=== PATIENT | male | born 1995 | race Hispanic/Latino ===

== ENCOUNTER 2020-03-30 16:59 | Emergency (ER) | payer SELFPAY ==
[2020-03-30] MEDS ORDERED: ACETAMINOPHEN 325 MG TAB ONE (18:01)
[2020-03-30 18:06] LABS: BASOPHILS % (AUTO) 0.3 % (0.0-5.0); EOSINOPHILS % (AUTO) 0.3 % (0.0-8.0); HEMATOCRIT 47.3 % (42-54); LYMPHOCYTES % (AUTO) 19.8 % (21.0-51.0); MEAN CORPUSCULAR HEMOGLOBIN 29.5 pg (27.0-33.0); MEAN CORPUSCULAR HGB CONC 34.2 g/dL (32.0-36.0); MEAN CORPUSCULAR VOLUME 86.2 fL (79-99); MONOCYTES % (AUTO) 15.8 % (3.0-13.0); NEUTROPHILS % (AUTO) 63.6 % (40.0-77.0); PLATELET COUNT (AUTO) 207 K/uL (130-400); RED BLOOD CELL COUNT(AUTO) 5.49 MIL/uL (4.50-6.20); RED CELL DISTRIBUTION WIDTH 12.3 % (11.0-15.5); WHITE BLOOD COUNT (AUTO) 5.9 K/uL (4.8-10.8)
[2020-03-30 18:07] LABS: APPEARANCE,URINE Clear (CLEAR); BILIRUBIN,URINE Negative (NEGATIVE); COLOR,URINE Yellow (YELLOW); GLUCOSE, URINE (UA) Negative (NEGATIVE); KETONES,URINE Negative (NEGATIVE); LEUKOCYTE ESTERASE ,URINE Trace (NEGATIVE); NITRATE,URINE Negative (NEGATIVE); OCCULT BLOOD,URINE Negative (NEGATIVE); PH,URINE 7.5 (5.0-8.0); PROTEIN,URINE Trace mg/dL (NEGATIVE)
[2020-03-30 18:20] LABS: CREATININE 1.1 mg/dL (0.5-1.5); POTASSIUM 5.6 mmol/L (3.5-5.1)
[2020-03-30 18:22] LABS: RBC,URINE None Seen /HPF (0-1)
[2020-03-30 18:23] LABS: BACTERIA,URINE Rare /HPF (None Seen); MUCUS,URINE Few LPF (None Seen); SQUAMOUS EPITHELIAL CELL,UR None Seen /HPF (0-2)
[2020-03-30 18:27] LABS: RAPID GROUP A STREP NEGATIVE (NEGATIVE)
== END 2020-03-30 20:05 | disposition home or self-care (01) ==
LOC: EDH 16:59
DX: R19.7 Diarrhea, unspecified (principal); Z72.0 Tobacco use; Z98.890 Other specified postprocedural states
CPT/HCPCS: 36415; 71045; 80048; 81001; 85025; 87804; 87880

== ENCOUNTER 2021-01-21 07:25 | Emergency (ER) | payer OTHER | END 2021-01-21 08:03 | disposition home or self-care (01) | LOC: EDH 07:25 | DX: L03.211 Cellulitis of face (principal); I10 Essential (primary) hypertension ==

== ENCOUNTER 2024-09-04 13:44 | Emergency (ER) | payer SELFPAY ==
[~2024-09-04] VITALS: Ht 177.8 cm; Wt 104.3 kg
[~2024-09-04 13:44] MED LIST: KETO10 PO; PENI500T2 PO
[2024-09-04] MEDS: 0.9%NACL 1000ML 1,000 ML IV STA (14:17)
[2024-09-04] MEDS: ketOROlac 15MG/ML VIAL (15MG/ML) IV STA (14:17)
[2024-09-04 14:25] LABS: RAPID GROUP A STREP negative (NEGATIVE)
[2024-09-04 14:31] LABS: SARS-CoV-2, RNA, NAAT NEGATIVE SARS CoV-2 (NEGATIVE)
[2024-09-04 14:34] LABS: BASOPHILS # (AUTO) 0.01 K/uL (0.00-0.20); BASOPHILS % (AUTO) 0.3 % (0.0-5.0); EOSINOPHILS # (AUTO) 0.04 K/uL (0.00-0.70); EOSINOPHILS % (AUTO) 1.2 % (0.0-8.0); HEMATOCRIT 44.5 % (42-54); IMMATURE GRANULOCYTE ABSOLUTE 0.02 K/uL (0-1); LYMPHOCYTES # (AUTO) 0.6 K/uL (1.0-4.8); MEAN CORPUSCULAR HEMOGLOBIN 29.5 pg (27.0-33.0); MEAN CORPUSCULAR HGB CONC 35.3 g/dL (32.0-36.0); MEAN CORPUSCULAR VOLUME 83.5 fL (79-99); MONOCYTES # (AUTO) 0.4 K/uL (0.1-1.0); NEUTROPHILS # (AUTO) 2.2 K/uL (1.8-7.7); NEUTROPHILS % (AUTO) 67.9 % (40.0-77.0); PLATELET COUNT (AUTO) 147 K/uL (130-400); RED BLOOD CELL COUNT(AUTO) 5.33 MIL/uL (4.50-6.20); RED CELL DISTRIBUTION WIDTH 12.1 % (11.0-15.5); WHITE BLOOD COUNT (AUTO) 3.3 K/uL (4.8-10.8)
[2024-09-04 14:36] LABS: INFLUENZA TYPE A Negative For Type A (NEGATIVE); INFLUENZA TYPE B Negative For Type B (NEGATIVE)
[2024-09-04 14:41] LABS: CREATININE 1.1 mg/dL (0.5-1.3); POTASSIUM 3.5 mmol/L (3.5-5.1)
[2024-09-04 15:28] LABS: APPEARANCE,URINE CLEAR (CLEAR); BILIRUBIN,URINE NEGATIVE (NEGATIVE); COLOR,URINE YELLOW (YELLOW); GLUCOSE, URINE (UA) NEGATIVE (NEGATIVE); KETONES,URINE NEGATIVE (NEGATIVE); LEUKOCYTE ESTERASE ,URINE NEGATIVE Leu/uL (NEGATIVE); NITRATE,URINE NEGATIVE (NEGATIVE); OCCULT BLOOD,URINE NEGATIVE (NEGATIVE); PROTEIN,URINE 30 mg/dL (NEGATIVE); UROBILINOGEN,URINE 0.2 mg/dL (0.2-1.0)
[2024-09-04 15:29] LABS: ADD UA MICROSCOPIC YES
[2024-09-04 15:31] LABS: BACTERIA,URINE RARE /HPF (None Seen); MUCUS,URINE RARE LPF (None Seen); SQUAMOUS EPITHELIAL CELL,UR RARE /HPF (0-2)
[2024-09-04] MEDS: acetaMINOPHEN 325 MG TAB PO STA (16:57)
[2024-09-04 17:26] VITALS: BP 131/70; PULSE 87; RESP 14; TEMP 100.1; O2SAT 98
[2024-09-04 17:27] VITALS: TEMP 100.1
== END 2024-09-04 17:29 | disposition home or self-care (01) ==
LOC: EDH 13:44
DX: B34.9 Viral infection, unspecified (principal); Z20.822 Contact with and (suspected) exposure to COVID-19; Z79.899 Other long term (current) drug therapy
CPT/HCPCS: 99285; 96374; 87635; 96361; 80048; 85025; 87880; 87804 ×2; 81001; 36415; J7030; J1885

== ENCOUNTER 2025-01-13 08:55 | Emergency (ER) | payer SELFPAY ==
[~2025-01-13] VITALS: Ht 177.8 cm; Wt 117.9 kg
--- NOTE | 2025-01-13 09:03 | ERN ---
General Chief Complaint: Abdominal Pain Stated Complaint: ABDOMINAL PAIN Time Seen by MD: 09:01 History of Present Illness Initial Comments 29-year-old male, otherwise healthy, presents for on and off right upper quadrant and right flank pain for the last 2-3 months. Most severe after eating. He feels bloated. He went to a doctor in [place] and was told he had gastritis and he was given medications that he says it is not working. No fevers. No diarrhea. No medical or surgical history. Allergies: Coded Allergies: No Allergy Information Available (Verified Allergy, Unknown, 05/18/14) No Known Drug Allergies (Unverified Allergy, Unknown, 03/31/20) Home Meds Active Scripts Ketorolac Tromethamine (Toradol) 10 Mg Tab, 10 MG PO TIDP PRN for SEVERE PAIN (7-10), #15 TAB 0 Refills Prov:DIONE LEGER MD 02/18/22 Penicillin V Potassium (Penicillin V Potassium) 500 Mg Tablet, 1 TAB PO TID for 7 Days, #21 TAB 0 Refills Prov:DIONE LEGER MD 02/18/22 Past Medical History Past Medical History: No Pertinent History Past Surgical History: None Social History Social History: Other ROS Dictation CONSTITUTIONAL: No chills, no fever, no weakness, no diaphoresis, no malaise. HEAD/FACE: No signs of trauma. EENT: No eye pain, no blurred vision, no tearing, no double vision, no ear pain, no ear discharge, no nose pain, no nasal congestion, no throat pain, no throat swelling, no mouth pain. RESPIRATORY: No cough, no orthopnea, no SOB, no stridor, no wheezing. CARDIOVASCULAR: No chest pain, no edema, no palpitations, no syncope. GASTROINTESTINAL/ABDOMINAL: Right upper quadrant pain, bloating, nausea GENITOURINARY: No abnormal discharge, no dysuria, no frequent urination, no hematuria. No complaints of pain in the genitals. MUSCULOSKELETAL: No back pain, no gout, no joint pain, no joint swelling, no muscle pain, no muscle stiffness, no neck pain. INTEGUMENTARY: No change in color, no change in hair/nails, no dryness, no lesion, no lumps, no rash. NEUROLOGICAL/PSYCH: No anxiety, not depressed, no emotional problem, no headache, no numbness, no pre-existing deficit, no history of seizures, no t remors, no weakness. HEMATOLOGIC/LYMPHATIC: Not anemic, no history of blood clots, no apparent bleeding, no bruising, glands not swollen. All Systems Negative, Except as Noted. Physical Exam Physical Exam Dictation VITAL SIGNS: Reviewed. GENERAL APPEARANCE: Alert, oriented x3, no acute distress, obese. HEAD AND FACE: Non-traumatic. EYES: PERRL, pink conjunctivas, eyelid no trauma, anterior chamber clear. EARS: Pinnas intact and no signs of trauma or erythema. Ear canals clear and no discharge. TMs no erythema. NOSE: No discharge, no bleeding. OROPHARYNX: Mouth normal, teeth no caries, tongue pink. Pharynx clear, no erythema. Tonsils no exudates, no abscesses noted. Mucous membrane moist. NECK: Supple, non-tender, no thyromegaly, no masses, no JVD, no bruits. BREAST: Deferred. CHEST: No tenderness, no crepitus, no paradoxical movement, no retractions. LUNGS: Clear, well-ventilated, symmetric, no rales, no wheezing, no rhonchi, no stridor, good breath sounds bilaterally. HEART: Regular rate, regular rhythm, no murmur, no gallops. VASCULAR: No peripheral edema. ABDOMEN: Soft, positive bowel sounds, nondistended, no guarding, nontender, no rebound, no masses no hepatomegaly, no splenomegaly, no Kruse's sign, no hernias. RECTAL: Deferred. GENITAL: Deferred. NEUROLOGICAL: Normal speech, gross motor function intact, gross sensory function intact. MUSCULOSKELETAL: Neck nontender, full range of motion, back nontender, full range of motion. EXTREMITIES: Nontender, full range of motion. SKIN: Color pink, dry, no turgor, no rash, no lacerations, no abrasions, no contusions. LYMPHATICS: Deferred. Results Laboratory and Microbiology Lab and Micro Result Laboratory Tests Test 01/13/25 09:08 01/13/25 09:50 Urine Color LIGHT-YELLOW (YELLOW) Urine Appearance CLEAR (CLEAR) Urine pH 5.5 (5.0-8.0) Urine Specific [place] 1.024 (1.001-1.031) Urine Protein NEGATIVE mg/dL (NEGATIVE) Urine Glucose (UA) NEGATIVE mg/dL (NEGATIVE) Urine Ketones NEGATIVE mg/dL (NEGATIVE) Urine Occult Blood NEGATIVE (NEGATIVE) Urine Nitrate NEGATIVE (NEGATIVE) Urine Bilirubin NEGATIVE mg/dL (NEGATIVE) Urine Urobilinogen 0.2 mg/dL (0.2-1.0) Urine Leukocyte Esterase NEGATIVE Awa/uL White Blood Count 11.5 K/uL (4.8-10.8) H Red Blood Count 5.67 MIL/uL (4.50-6.20) Hemoglobin 16.6 g/dL (14.0-18.0) Hematocrit 48.6 % (42-54) Mean Corpuscular Volume 85.7 fL (79-99) Mean Corpuscular Hemoglobin 29.3 pg (27.0-33.0) Mean Corpuscular Hemoglobin Concent 34.2 g/dL (32.0-36.0) Red Cell Distribution Width 12.9 % (11.0-15.5) Platelet Count 296 K/uL (130-400) Mean Platelet Volume 10.9 fL (7.5-10.5) H Immature Granulocyte % (Auto) 0.7 % (0-1) Neutrophils (%) (Auto) 59.2 % (40.0-77.0) Lymphocytes (%) (Auto) 29.1 % (21.0-51.0) Monocytes (%) (Auto) 8.8 % (3.0-13.0) Eosinophils (%) (Auto) 1.7 % (0.0-8.0) Basophils (%) (Auto) 0.5 % (0.0-5.0) Neutrophils # (Auto) 6.8 K/uL (1.8-7.7) Lymphocytes # (Auto) 3.3 K/uL (1.0-4.8) Monocytes # (Auto) 1.0 K/uL (0.1-1.0) Eosinophils # (Auto) 0.20 K/uL (0.00-0.70) Basophils # (Auto) 0.06 K/uL (0.00-0.20) Absolute Immature Granulocyte (auto 0.08 K/uL (0-1) Nucleated Red Blood Cells 0.0 % (0.0-0.19) Sodium Level 139 mmol/L (136-145) Potassium Level 3.9 mmol/L (3.5-5.1) Chloride Level 102 mmol/L (101-111) Carbon Dioxide Level 30 mmol/L (21-32) Blood Urea Nitrogen 12 mg/dL (7-18) Creatinine 0.9 mg/dL (0.5-1.3) Glomerular Filtration Rate Calc 118 mL/min (>90) Random Glucose 123 mg/dL (70-105) H Total Calcium 9.4 mg/dL (8.5-10.1) Total Bilirubin 0.4 mg/dL (0.2-1.0) Direct Bilirubin 0.1 mg/dL (0.0-0.3) Aspartate Amino Transf (AST/SGOT) 23 U/L (10-37) Alanine Aminotransferase (ALT/SGPT) 44 U/L (12-78) Alkaline Phosphatase 115 U/L (50-136) Total Protein 7.9 g/dL (6.0-8.3) Albumin 4.5 g/dL (3.5-5.0) Lipase 39 U/L (16-77) MDM CC: Upper abdominal pain Historian: Patient Comorbidities: None Limitations by social determinants of health: Uninsured Differential diagnosis: Gastritis, biliary disease, liver disease, surgical pathology, other. Vital signs: Stable remained stable in the ER Labs (independently ordered and interpreted by me ): No leukocytosis, no anemia. Chemistry panel normal. Liver enzymes normal. Lipase normal. Urinalysis normal. Right upper quadrant ultrasound (independently interpreted by me): No obvious stones, no wall thickening, no pericholecystic fluid, no signs of cholecystitis or biliary disease. He does have a fatty liver. Very low suspicion for any life threats or surgical pathology. No signs of peritoneal abdomen, sepsis, or other surgical pathology. Symptoms most consistent with a gastritis. Plan: Prescription for omeprazole, recommend PCP follow up. ED Course Orders Procedure Category Date Status Time Cbc With Differential LAB 01/13/25 Complete : Urinalysis Profile LAB 01/13/25 Complete : Us Abdominal Ruq\Ltd US 01/13/25 Resulted : Lipase LAB 01/13/25 Complete : Basic Metabolic Panel LAB 01/13/25 Complete : Hepatic Function Panel LAB 01/13/25 Complete 09: Vital Signs Date Time Temp Pulse Resp B/P (MAP) Pulse Ox O2 Delivery O2 Flow Rate FiO2 01/13/25 09:00 99.0 100 20 145/98 99 Room Air DX & DISP Disposition: Discharge Departure Impression: Primary Impression: Gastritis Condition: Stable Scripts Omeprazole (Omeprazole) 20 Mg Capsule. 1 CAP PO DAILY for 30 Days, #30 CAP 0 Refills Prov: ARIEL KING DO 01/13/25 Additional Instructions: Your symptoms are consistent with a gastritis, or inflammation of the stomach lining. This can be caused by infections, medications, alcohol, or stress. I have prescribed omeprazole. Take once daily before eating in the morning. Take this for at least 30 days. You can take [id number] Tums or Maalox or Mylanta as needed for discomfort. Avoid NSAIDs such as ibuprofen, naproxen, and aspirin. Eat small, frequent meals. Avoid overheating. Avoid spicy foods, acidic foods, fried foods, and fatty foods. Limit caffeine, alcohol, and carbonated beverages. Stay hydrated. Avoid smoking, reduce stress. Do not lie down immediately after eating, wait at least 2-3 hours. Your lab work ( CBC, BMP, liver enzymes, lipase, urinalysis ) is unremarkable. The ultrasound of your right upper quadrant does not show any gallstones. You do have a fatty liver on the ultrasound. You can talk to your primary doctor regarding this. This is unlikely related to your symptoms. Please follow up with your primary doctor or stereotype molder. You may need further studies or testing. Referrals: SELF,REFERRAL (PCP) ARIEL KING DO Jan 13, 2025 09:03
[2025-01-13 09:20] LABS: APPEARANCE,URINE CLEAR (CLEAR); BILIRUBIN,URINE NEGATIVE (NEGATIVE); COLOR,URINE LIGHT-YELLOW (YELLOW); GLUCOSE, URINE (UA) NEGATIVE (NEGATIVE); KETONES,URINE NEGATIVE (NEGATIVE); LEUKOCYTE ESTERASE ,URINE NEGATIVE Leu/uL (NEGATIVE); NITRATE,URINE NEGATIVE (NEGATIVE); OCCULT BLOOD,URINE NEGATIVE (NEGATIVE); PH,URINE 5.5 (5.0-8.0); PROTEIN,URINE NEGATIVE (NEGATIVE); UROBILINOGEN,URINE 0.2 mg/dL (0.2-1.0)
[2025-01-13 09:23] LABS: ADD UA MICROSCOPIC NO
--- NOTE | 2025-01-13 09:58 | HMCIMG ---
Exam Type: US ABDOMINAL RUQ\E\LTD Clinical Information: Adominal Pain Comparison: None Findings: The liver shows fatty infiltration and is enlarged, measuring 17.1 cm and is otherwise unremarkable. Doppler evaluation shows patent portal and hepatic veins. The gallbladder shows no significant abnormalities. Specifically, no calculi are seen. No bile duct dilatation is noted. The gallbladder wall measures 3 mm. The common bile duct measures 5 mm. The right kidney measures 12 x 7 cm- it shows no hydronephrosis or calculi, masses or other abnormalities. The pancreas is suboptimally visualized. The aorta and inferior vena cava show no significant abnormalities. IMPRESSION: FATTY LIVER INFILTRATION AND HEPATOMEGALY. OTHERWISE NORMAL RIGHT UPPER QUADRANT ABDOMINAL ULTRASOUND.
[2025-01-13 10:02] LABS: BASOPHILS # (AUTO) 0.06 K/uL (0.00-0.20); BASOPHILS % (AUTO) 0.5 % (0.0-5.0); EOSINOPHILS % (AUTO) 1.7 % (0.0-8.0); HEMATOCRIT 48.6 % (42-54); IMMATURE GRANULOCYTE ABSOLUTE 0.08 K/uL (0-1); LYMPHOCYTES # (AUTO) 3.3 K/uL (1.0-4.8); LYMPHOCYTES % (AUTO) 29.1 % (21.0-51.0); MEAN CORPUSCULAR HEMOGLOBIN 29.3 pg (27.0-33.0); MEAN CORPUSCULAR HGB CONC 34.2 g/dL (32.0-36.0); MEAN CORPUSCULAR VOLUME 85.7 fL (79-99); MONOCYTES % (AUTO) 8.8 % (3.0-13.0); NEUTROPHILS # (AUTO) 6.8 K/uL (1.8-7.7); NEUTROPHILS % (AUTO) 59.2 % (40.0-77.0); PLATELET COUNT (AUTO) 296 K/uL (130-400); RED BLOOD CELL COUNT(AUTO) 5.67 MIL/uL (4.50-6.20); RED CELL DISTRIBUTION WIDTH 12.9 % (11.0-15.5); WHITE BLOOD COUNT (AUTO) 11.5 K/uL (4.8-10.8)
[2025-01-13 10:11] LABS: CREATININE 0.9 mg/dL (0.5-1.3); POTASSIUM 3.9 mmol/L (3.5-5.1)
[2025-01-13 10:15] LABS: ALBUMIN 4.5 g/dL (3.5-5.0); BILIRUBIN,DIRECT 0.1 mg/dL (0.0-0.3); BILIRUBIN,TOTAL 0.4 mg/dL (0.2-1.0); TOTAL PROTEIN, SERUM 7.9 g/dL (6.0-8.3)
[2025-01-13] MEDS ORDERED: OMEP20CA12 PO (10:24)
[2025-01-13 11:31] VITALS: BP 145/98; PULSE 100; RESP 20; TEMP 98.9; O2SAT 99
== END 2025-01-13 12:22 | disposition home or self-care (01) ==
LOC: EDH 08:55
DX: K29.70 Gastritis, unspecified, without bleeding (principal); Z79.899 Other long term (current) drug therapy
CPT/HCPCS: 36415; 76705; 80048; 80076; 81003; 83690; 85025; 99284

== ENCOUNTER 2025-09-19 18:34 | Emergency (ER) | payer SELFPAY ==
[~2025-09-19] VITALS: Ht 180.3 cm; Wt 122.5 kg
[~2025-09-19 18:34] MED LIST changes: +OMEP20CA12 PO
[2025-09-19 19:07] LABS: IMMATURE GRANULOCYTE ABSOLUTE 0.05 K/uL (0-1); NUCLEATED RED BLOOD CELLS 0.0 % (0.0-0.19); PLATELET COUNT (AUTO) 225 K/uL (130-400); RED BLOOD CELL COUNT(AUTO) 4.71 MIL/uL (4.50-6.20); RED CELL DISTRIBUTION WIDTH 12.6 % (11.0-15.5); WHITE BLOOD COUNT (AUTO) 10.5 K/uL (4.8-10.8)
[2025-09-19] MEDS: 0.9%NACL 1000ML 1,000 ML IV ONE (19:07)
[2025-09-19 19:15] LABS: CREATININE 1.1 mg/dL (0.5-1.3); GLOMERULAR FILTR. RATE CALC 92.0 mL/min (>90); GLUCOSE,RANDOM 139.0 mg/dL (70-105); SODIUM SERUM 138.0 mmol/L (136-145); UREA NITROGEN, BLOOD 20.0 mg/dL (7-18)
--- NOTE | 2025-09-19 20:26 | ERN ---
General Chief Complaint: Back Pain-No Injury Stated Complaint: back pain Time Seen by MD: 18:40 Time Seen by Midlevel: 18:40 Source: patient History of Present Illness Initial Comments Patient is a 30-year-old male with a past medical history of kidney stones presenting to the emergency department with sudden onset of right flank pain that started earlier today. Allergies: Coded Allergies: No Allergy Information Available (Verified Allergy, Unknown, 05/18/14) No Known Drug Allergies (Unverified Allergy, Unknown, 03/31/20) Home Meds Active Scripts Ondansetron (Ondansetron Odt) 4 Mg Tab.rapdis, 4 MG PO BID for 7 Days, #14 TAB Prov:CARO LAO 09/19/25 Ketorolac Tromethamine (Ketorolac Tromethamine) 10 Mg Tablet, 1 TAB PO TID for pain for 5 Days, #15 TAB 0 Refills Prov:CARO LAO 09/19/25 Omeprazole (Omeprazole) 20 Mg Capsule.dr, 1 CAP PO DAILY for 30 Days, #30 CAP 0 Refills Prov:ARIEL KING DO 01/13/25 Ketorolac Tromethamine (Toradol) 10 Mg Tab, 10 MG PO TIDP PRN for SEVERE PAIN (7-10), #15 TAB 0 Refills Prov:DIONE LEGER MD 02/18/22 Penicillin V Potassium (Penicillin V Potassium) 500 Mg Tablet, 1 TAB PO TID for 7 Days, #21 TAB 0 Refills Prov:DIONE LEGRE MD 02/18/22 Past Medical History Past Medical History: No Pertinent History, Kidney Stone Past Surgical History: None Social History Social History: Other ROS Dictation CONSTITUTIONAL: Negative except for HPI HEAD/FACE: Negative except for HPI EENT: Negative except for HPI RESPIRATORY: Negative except for HPI GASTROINTESTINAL/ABDOMINAL: Negative except for HPI GENITOURINARY: Negative except for HPI MUSCULOSKELETAL: Negative except for HPI INTEGUMENTARY: Negative except for HPI NEUROLOGICAL/PSYCH: Negative except for HPI HEMATOLOGIC/LYMPHATIC: Negative except for HPI All Systems Negative, Except as noted above. 13 point review of systems assessed and all negative except for above. Physical Exam Physical Exam Dictation Vital Signs reviewed General Appearance: Alert, oriented x 3, moderate distress secondary to right flank pain Head and Face: non-traumatic. Eyes: PERRL, pink conjunctivas, eyelid no trauma, anterior chamber with arcus senilis. Ears: Pinnas intact and no signs of trauma or erythema ear canals clear and no d ischarge TM no erythema Nose: No discharge, no bleeding. Oropharynx: Mouth normal, tongue pink, pharynx clear,no erythema, tonsils no exudates, no abscesses noted, mucous membrane moist Neck: Supple, non-tender, no thyromegaly, no masses, no JVD, no bruits Breast:Deferred Chest:No tenderness, no crepitus, no paradoxical movement, no retractions Lungs:Clear, well-ventilated, symmetric, no rales, no wheezing, no rhonchi, no stridor, good breath sounds bilaterally Heart: Regular rate, regular rhythm, no murmur, no gallops Vascular: no peripheral edema, Abdomen: Soft, positive bowel sounds, nondistended, no guarding, nontender, no rebound, no masses no hepatomegaly, no splenomegaly, no Kruse's sign, no hernias. Rectal: Deferred Genital: Deferred Neurological: Normal speech, motor function intact, sensory function intact Musculoskeletal: Neck nontender, full range of motion, back nontender, full range of motion, Extremities: nontender, full range of motion Skin: Color pink, dry, no turgor, no rash, no lacerations, no abrasions, no contusions. Lymphatic: Deferred Results Laboratory and Microbiology Lab and Micro Result Laboratory Tests Test 09/19/25 19:01 09/19/25 21:07 White Blood Count 10.5 K/uL (4.8-10.8) Red Blood Count 4.71 MIL/uL (4.50-6.20) Hemoglobin 14.3 g/dL (14.0-18.0) Hematocrit 40.7 % (42-54) L Mean Corpuscular Volume 86.4 fL (79-99) Mean Corpuscular Hemoglobin 30.4 pg (27.0-33.0) Mean Corpuscular Hemoglobin Concent 35.1 g/dL (32.0-36.0) Red Cell Distribution Width 12.6 % (11.0-15.5) Platelet Count 225 K/uL (130-400) Mean Platelet Volume 10.9 fL (7.5-10.5) H Immature Granulocyte % (Auto) 0.5 % (0-1) Neutrophils (%) (Auto) 54.5 % (40.0-77.0) Lymphocytes (%) (Auto) 33.3 % (21.0-51.0) Monocytes (%) (Auto) 9.3 % (3.0-13.0) Eosinophils (%) (Auto) 1.9 % (0.0-8.0) Basophils (%) (Auto) 0.5 % (0.0-5.0) Neutrophils # (Auto) 5.7 K/uL (1.8-7.7) Lymphocytes # (Auto) 3.5 K/uL (1.0-4.8) Monocytes # (Auto) 1.0 K/uL (0.1-1.0) Eosinophils # (Auto) 0.20 K/uL (0.00-0.70) Basophils # (Auto) 0.05 K/uL (0.00-0.20) Absolute Immature Granulocyte (auto 0.05 K/uL (0-1) Nucleated Red Blood Cells 0.0 % (0.0-0.19) Sodium Level 138 mmol/L (136-145) Potassium Level 4.0 mmol/L (3.5-5.1) Chloride Level 104 mmol/L (101-111) Carbon Dioxide Level 25 mmol/L (21-32) Blood Urea Nitrogen 20 mg/dL (7-18) H Creatinine 1.1 mg/dL (0.5-1.3) Glomerular Filtration Rate Calc 92 mL/min (>90) Random Glucose 139 mg/dL (70-105) H Total Calcium 8.9 mg/dL (8.5-10.1) Urine Color LIGHT-YELLOW (YELLOW) Urine Appearance CLEAR (CLEAR) Urine pH 6.0 (5.0-8.0) Urine Specific [place] 1.024 (1.001-1.031) Urine Protein NEGATIVE mg/dL (NEGATIVE) Urine Glucose (UA) NEGATIVE mg/dL (NEGATIVE) Urine Ketones NEGATIVE mg/dL (NEGATIVE) Urine Occult Blood MODERATE (NEGATIVE) H Urine Nitrate NEGATIVE (NEGATIVE) Urine Bilirubin NEGATIVE mg/dL (NEGATIVE) Urine Urobilinogen 0.2 mg/dL (0.2-1.0) Urine Leukocyte Esterase NEGATIVE Awa/uL Urine RBC 11-25 /HPF (0-1) H Urine WBC 0-1 /HPF (0-1) Urine Bacteria RARE /HPF (None Seen) Labs Reviewed?: Yes MDM MDM: 30-year-old male coming in with sudden onset of right flank pain. On physical examination the patient has a [id number] distress secondary to pain. Abdominal workup was initiated. His CBC and chemistries are stable. His urinalysis shows red blood cells. A CT scan of the abdomen and pelvis was performed which reveals a 0.4 cm ureter stone. Patient given Toradol, morphine, and Flomax in the emergency department. Patient is not septic. We will discharged home with supportive management. Patient was given a paper prescription for Flomax. Differential diagnosis: Ureter stone, pyelonephritis, urinary tract infection There are no social concerns with this patient. Prescription drug management Prescriptions will include: Tamsulosin, ketorolac, Zofran Medical management and examination interpretation discussions were had by me with other qualified healthcare professionals as indicated for the patient's care. ED Course Orders Procedure Category Date Status Time Cbc With Differential LAB 09/19/25 Complete 18:43 Basic Metabolic Panel LAB 09/19/25 Complete 18:43 Urinalysis Profile LAB 09/19/25 Complete 18:43 0.9%Nacl 1000ml (Ns PHA 09/19/25 Complete 1000ml) 19:00 Ketorolac PHA 09/19/25 Complete Tromethamine 15mg/Ml 19:00 Ondansetron 4mg Inj PHA 09/19/25 Complete (Zofran 4mg Inj) 19:00 Morphine 2mg Syg PHA 09/19/25 Complete (Morphine 2mg Syg) 19:00 Ct Abdomen/Pelvis W/O CT 09/19/25 Resulted Contrast 18:43 Tamsulosin Hcl PHA 09/19/25 Complete (Flomax) 21:00 Current Medications Medications (Trade) Dose Ordered Sig/Jose Luis Route PRN Reason Start Time Stop Time Status Last Admin Dose Admin Ketorolac Tromethamine (toRADol) 15 mg ONCE ONCE IV 09/19/25 19:00 09/19/25 19:01 DC 09/19/25 19:06 Morphine Sulfate (morPHINE 2MG SYG) 2 mg ONCE ONCE IVP 09/19/25 19:00 09/19/25 19:01 DC 09/19/25 19:06 Ondansetron HCl (zoFRAN 4MG INJ) 4 mg ONCE ONCE IVP 09/19/25 19:00 09/19/25 19:01 DC 09/19/25 19:06 Sodium Chloride 1,000 ml @ 0 mls/hr ONCE ONCE IV 09/19/25 19:00 09/19/25 19:01 DC 09/19/25 19:07 Tamsulosin HCl (FloMAX) 0.4 mg ONCE ONCE PO 09/19/25 21:00 09/19/25 21:01 DC 09/19/25 21:06 Vital Signs Date Time Temp Pulse Resp B/P (MAP) Pulse Ox O2 Delivery O2 Flow Rate FiO2 09/19/25 19:22 98.2 75 13 147/69 97 Room Air* 0 09/19/25 18:52 98.4 80 16 181/97 98 Room Air* 0 09/19/25 18:37 98.8 77 18 187/97 99 DX & DISP Disposition: Discharge Departure Impression: Primary Impression: Calculus of distal right ureter Condition: Stable Scripts Ondansetron (Ondansetron Odt) 4 Mg Tab.rapdis 4 MG PO BID for 7 Days, #14 TAB Prov: CARO LAO 09/19/25 Ketorolac Tromethamine (Ketorolac Tromethamine) 10 Mg Tablet 1 TAB PO TID for pain for 5 Days, #15 TAB 0 Refills Prov: CARO LAO 09/19/25 Referrals: SELF,REFERRAL (PCP) Time of Disposition: 21:18 I have reviewed the case, and I agree with, Diagnosis and Plan I performed the substantive portion of the visit. I have reviewed and personally made and approve the management plan that is documented in the note by myself or the MARÍA. I acknowledge for responsibility for the patient's management plan. CARO LAO Sep 19, 2025 20:26
--- NOTE | 2025-09-19 20:34 | HMCIMG ---
EXAM: CT Abdomen and Pelvis Without IV Contrast CLINICAL HISTORY: Patient presents with right flank pain to evaluate for ureteral stone. TECHNIQUE: Axial computed tomography images of the abdomen and pelvis without intravenous contrast. CONTRAST: No IV contrast. COMPARISON: None provided. FINDINGS: LUNG BASES: The lung bases appear clear. No pleural effusions are seen. LIVER: The liver is enlarged measuring 20.1 cm in craniocaudal span. GALLBLADDER AND BILE DUCTS: The gallbladder appears within normal limits. No radioopaque gallstones are seen. No biliary ductal dilatation is evident. PANCREAS: Unremarkable. SPLEEN: Unremarkable. ADRENAL GLANDS: Unremarkable. KIDNEYS, URETERS, AND BLADDER: There is an obstructive right vesicoureteric junction calculus measuring approximately 0.4 cm causing upstream mild hydroureteronephrosis. No left hydronephrosis or hydroureter. No additional urinary calculi. STOMACH AND BOWEL: Unremarkable appearance of the stomach and bowel. No evidence of bowel obstruction. No findings suggesting enteritis or colitis. APPENDIX: No evidence of acute appendicitis on CT examination. PERITONEUM: No free fluid. No free air. LYMPH NODES: No lymphadenopathy is evident. REPRODUCTIVE: Unremarkable as visualized. VASCULATURE: No evidence of abdominal aortic aneurysm. BONES: No aggressive appearing osseous lesion. No acute osseous pathology evident. IMPRESSION: Obstructive right vesicoureteric junction calculus measuring 0.4 cm causing mild hydroureteronephrosis. Hepatomegaly. No additional acute intra-abdominal or pelvic abnormality. /[facility]
[2025-09-19] MEDS ORDERED: KETO10TA2 PO (21:11)
[2025-09-19] MEDS ORDERED: ONDA-243 PO (21:11)
[2025-09-19 21:19] LABS: ADD UA MICROSCOPIC YES; APPEARANCE,URINE CLEAR (CLEAR); GLUCOSE, URINE (UA) NEGATIVE (NEGATIVE); LEUKOCYTE ESTERASE ,URINE NEGATIVE Leu/uL (NEGATIVE); NITRATE,URINE NEGATIVE (NEGATIVE); OCCULT BLOOD,URINE MODERATE (NEGATIVE)
[2025-09-19 21:43] VITALS: BP 132/69; PULSE 70; RESP 15; TEMP 98.4; O2SAT 98
== END 2025-09-19 22:01 | disposition home or self-care (01) ==
LOC: EDH 18:34
DX: N13.2 Hydronephrosis with renal and ureteral calculous obstruction (principal); Z79.899 Other long term (current) drug therapy; Z87.442 Personal history of urinary calculi
CPT/HCPCS: 99285; 74176; 96374; 96361; 96375; 80048; 85025; 81001; 36415; J1885; J2270; J7030; J2405